=== PATIENT | male | born 1940 | race Caucasian/White ===

== ENCOUNTER 2019-06-06 19:01 | Inpatient (IN) | payer MEDICARE ==
[2019-06-06 19:28] LABS: Glucose,Whole Blood 112 mg/dL (75-99)
[2019-06-06] MEDS ORDERED: ASPIRIN 81 MG PO STA (19:29)
[2019-06-06] MEDS ORDERED: SODIUM CHLORIDE 0.9% 500 ML 500 ML IV STA (19:29)
--- NOTE | 2019-06-06 19:31 | ED ---
General Adult HPI - General Chief complaint: Neuro Symptoms/Deficit Stated complaint: Rt arm numbness/confused Time Seen by Provider: 06/06/19 19:11 Source: patient Mode of arrival: wheelchair Limitations: no limitations - History of Present Illness Initial comments: Dictation was produced using [employer] dictation software. please excuse any grammatical, word or spelling errors. Chief Complaint: 78-year-old male presenting with strokelike symptoms. History of Present Illness: 78-year-old male is past medical history dysl ipidemia and hypertension. He had an episode today lasting for approximately 10 minutes. He was disoriented with difficulty with speech and having numbness to his right upper extremity. Patient has a history of CVA. He states his symptoms lasted symptoms resolved. He was concerned he is having a stroke into the emergency department. Patient denies any symptoms at this time. He did complain of some mild nasal congestion earlier this morning. The ROS documented in this emergency department record has been reviewed and confirmed by me. Those systems with pertinent positive or negative responses have been documented in the HPI. All other systems are other negative and/or noncontributory. PHYSICAL EXAM: General Impression: Alert and oriented x3, not in acute distress HEENT: Normocephalic atraumatic, extra-ocular movements intact, pupils equal and reactive to light bilaterally, mucous membranes moist. Cardiovascular: Heart regular rate and rhythm, S1&S2 audible, no murmurs, rubs or gallops Chest: Lungs clear to auscultation bilaterally, no rhonchi, no wheeze, no rales Abdomen: Bowel sounds present, abdomen soft, non-tender, non-distended, no organomegaly Musculoskeletal: Pulses present and equal in all extremities, no peripheral edema Motor: no focal deficits noted Neurological: CN II-XII grossly intact, no focal motor or sensory deficits noted Skin: Intact with no visualized rashes Psych: Normal affect and mood ED course: [id number] male with clinical presentation consistent with transient ischemic attack. Patient evaluated bedside with NIH of 0. Signs upon arrival are within acceptable limits. Patient given aspirin.Laboratory evaluation found to be unremarkable. Chest x-ray is nonacute. Computed tomography scan of the brain shows no acute findings. No intracranial bleed. Patient given aspirin. Patient reevaluated bedside so continues to endorse no neurologic symptoms. Clinical presentation concerning for transient ischemic attack. Patient be admitted for TIA workup. Apple understandable agreeable with disposition. EKG interpretation: Ventricular rate 73, sinus rhythm,. Interval 184, Q 74, QTC 418. No UT prolongation, no QTC prolongation, no ST or T-wave changes noted. No old EKG for comparison. Overall, this EKG is unremarkable - Related Data Home Medications Medication Instructions Recorded Confirmed Atorvastatin [Lipitor] 40 mg PO DAILY 06/06/19 06/06/19 Lisinopril-Hctz 20-25 mg 1 tab PO HS 06/06/19 06/06/19 [Zestoretic 20-25] Ubidecarenone [Co Q-10] 100 mg PO DAILY 06/06/19 06/06/19 Allergies Allergy/AdvReac Type Severity Reaction Status Date / Time No Known Allergies Allergy Verified 06/06/19 19:55 Review of Systems ROS Statement: Those systems with pertinent positive or pertinent negative responses have been documented in the HPI. ROS Other: All systems not noted in ROS Statement are negative. Past Medical History Past Medical History: Hyperlipidemia, Hypertension History of Any Multi-Drug Resistant Organisms: None Reported Past Surgical History: No Surgical Hx Reported Past Psychological History: No Psychological Hx Reported Smoking Status: Former smoker Past Alcohol Use History: None Reported Past Drug Use History: None Reported General Exam Limitations: no limitations Course Vital Signs 06/06/19 06/06/19 19:02 20:20 Temperature 98.2 F Pulse Rate 72 65 Respiratory 18 18 Rate Blood Pressure 188/94 173/98 O2 Sat by Pulse 96 94 L Oximetry Medical Decision Making - Lab Data Result diagrams: 06/06/19 19:21 06/06/19 19:21 Lab Results 06/06/19 06/06/19 06/06/19 Range/Units 19:21 19:21 19:21 WBC 7.9 (3.8-10.6) k/uL RBC 5.27 (4.30-5.90) m/uL Hgb 14.8 (13.0-17.5) gm/dL Hct 45.3 (39.0-53.0) % MCV 86.0 (80.0-100.0) fL MCH 28.1 (25.0-35.0) pg MCHC 32.7 (31.0-37.0) g/dL RDW 15.1 (11.5-15.5) % Plt Count 200 (150-450) k/uL Neutrophils % 72 % Lymphocytes % 17 % Monocytes % 6 % Eosinophils % 4 % Basophils % 1 % Neutrophils # 5.6 (1.3-7.7) k/uL Lymphocytes # 1.3 (1.0-4.8) k/uL Monocytes # 0.5 (0-1.0) k/uL Eosinophils # 0.3 (0-0.7) k/uL Basophils # 0.1 (0-0.2) k/uL PT 10.3 (9.0-12.0) sec INR 1.0 (<1.2) APTT 24.3 (22.0-30.0) sec Sodium 141 (137-145) mmol/L Potassium 4.5 (3.5-5.1) mmol/L Chloride 102 (98-107) mmol/L Carbon Dioxide 29 (22-30) mmol/L Anion Gap 10 mmol/L BUN 17 (9-20) mg/dL Creatinine 1.06 (0.66-1.25) mg/dL Est GFR (CKD-EPI)AfAm 78 (>60 ml/min/1.73 sqM) Est GFR (CKD-EPI)NonAf 68 (>60 ml/min/1.73 sqM) Glucose 117 H (74-99) mg/dL POC Glucose (mg/dL) (75-99) mg/dL POC Glu Biological Technician ID Calcium 9.4 (8.4-10.2) mg/dL Total Bilirubin 0.7 (0.2-1.3) mg/dL AST 31 (17-59) U/L ALT 22 (21-72) U/L Alkaline Phosphatase 77 (38-126) U/L Troponin I (0.000-0.034) ng/mL Total Protein 7.0 (6.3-8.2) g/dL Albumin 4.1 (3.5-5.0) g/dL 06/06/19 06/06/19 Range/Units 19:21 19:27 WBC (3.8-10.6) k/uL RBC (4.30-5.90) m/uL Hgb (13.0-17.5) gm/dL Hct (39.0-53.0) % MCV (80.0-100.0) fL MCH (25.0-35.0) pg MCHC (31.0-37.0) g/dL RDW (11.5-15.5) % Plt Count (150-450) k/uL Neutrophils % % Lymphocytes % % Monocytes % % Eosinophils % % Basophils % % Neutrophils # (1.3-7.7) k/uL Lymphocytes # (1.0-4.8) k/uL Monocytes # (0-1.0) k/uL Eosinophils # (0-0.7) k/uL Basophils # (0-0.2) k/uL PT (9.0-12.0) sec INR (<1.2) APTT (22.0-30.0) sec Sodium (137-145) mmol/L Potassium (3.5-5.1) mmol/L Chloride (98-107) mmol/L Carbon Dioxide (22-30) mmol/L Anion Gap mmol/L BUN (9-20) mg/dL Creatinine (0.66-1.25) mg/dL Est GFR (CKD-EPI)AfAm (>60 ml/min/1.73 sqM) Est GFR (CKD-EPI)NonAf (>60 ml/min/1.73 sqM) Glucose (74-99) mg/dL POC Glucose (mg/dL) 112 H (75-99) mg/dL POC Glu Biological Technician Susan Mckoy Calcium (8.4-10.2) mg/dL Total Bilirubin (0.2-1.3) mg/dL AST (17-59) U/L ALT (21-72) U/L Alkaline Phosphatase (38-126) U/L Troponin I <0.012 (0.000-0.034) ng/mL Total Protein (6.3-8.2) g/dL Albumin (3.5-5.0) g/dL Disposition Clinical Impression: TIA (transient ischemic attack) Disposition: ADMITTED IP TO THIS HOSP Condition: Fair Referrals: Vincenzo De La Fuente MD [Primary Care Provider] - 1-2 days Decision Time: 21:33
[2019-06-06 19:51] LABS: Basophils # (A) 0.1 k/uL (0-0.2); Basophils % (A) 1 %; Eosinophils # (A) 0.3 k/uL (0-0.7); Eosinophils % (A) 4 %; HCT 45.3 % (39.0-53.0); HGB 14.8 gm/dL (13.0-17.5); Lymphocytes # (A) 1.3 k/uL (1.0-4.8); Lymphocytes % (A) 17 %; MCH 28.1 pg (25.0-35.0); MCHC 32.7 g/dL (31.0-37.0); Mean Platelet Volume 7.5; Monocytes # (A) 0.5 k/uL (0-1.0); Monocytes % (A) 6 %; Neutrophils # (A) 5.6 k/uL (1.3-7.7); Neutrophils % (A) 72 %; Platelet Count 200 k/uL (150-450); RBC 5.27 m/uL (4.30-5.90); RDW 15.1 % (11.5-15.5); WBC 7.9 k/uL (3.8-10.6)
--- NOTE | 2019-06-06 19:52 | CT ---
EXAMINATION TYPE: CT brain wo con DATE OF EXAM: 06/06/2019 COMPARISON: None HISTORY: Right sided arm numbness and confusion CT DLP: 1087.4 mGycm Automated exposure control for dose reduction was used. FINDINGS: There is some cerebral cortical atrophy. There is no mass effect nor midline shift. There is no sign of intracranial hemorrhage. The calvarium is intact. IMPRESSION: MILD CEREBRAL ATROPHY. NO ACUTE INTRACRANIAL ABNORMALITY.
--- NOTE | 2019-06-06 19:53 | XR ---
EXAMINATION TYPE: XR chest 2V DATE OF EXAM: 06/06/2019 COMPARISON: NONE HISTORY: Confusion TECHNIQUE: Frontal and lateral views of the chest are obtained. FINDINGS: Heart and mediastinum are normal. Lungs are clear. Diaphragm is normal. There are chest le ads. Bony thorax is intact. IMPRESSION: No active cardiopulmonary disease. Normal heart.
[2019-06-06 19:56] LABS: Partial Thromboplastin Time 24.3 sec (22.0-30.0); Prothrombin Time 10.3 sec (9.0-12.0)
[2019-06-06 20:09] LABS: Albumin 4.1 g/dL (3.5-5.0); Calcium 9.4 mg/dL (8.4-10.2); Potassium 4.5 mmol/L (3.5-5.1); Total Bilirubin 0.7 mg/dL (0.2-1.3)
[2019-06-06] MEDS: SODIUM CHLORIDE 0.9% 1,000 ML IV SCH (23:24)
--- NOTE | 2019-06-06 23:42 | P.HPIM ---
History of Present Illness H&P Date: 06/06/19 Patient is a 78-year-old male with a PMH of hypertension and hyperlipidemia who presented to the ED with complaints of sudden onset of right hand numbness and right arm weakness and incoordination. The patient states that he was in his usual state of health and was having dinner at a restaurant when he suddenly noticed his right hand became numb. He then attempted to reach for a few objects and felt that his coordination was off. The patient's family was present at the time and noticed his symptoms immediately brought him to the emergency room. The patient's symptoms resolved completely within 5 minutes of onset. The patient also endorsed feeling somewhat warm during the episode. The patient however denied experiencing any speech impairment, weakness/numbness elsewhere, visual disturbances, dizziness, chest pain, shortness of breath, nausea, vomiting, diaphoresis. He also denied diarrhea, urinary complaints, abdominal pain, or headaches. Patient states that he has never had a stroke or stroke-like symptoms in the past. At time of interview, he felt that he was entirely back to his baseline. He underwent an extensive evaluation in the emergency room with CT head showing mild cerebral atrophy, chest x-ray unremarkable, and EKG showing sinus rhythm at 73 bpm with APCs along with T-wave inversion in leads III and V1. Laboratory evaluation revealed a WBC count of 7.9, hemoglobin 14.8, platelets 200, sodium 141, potassium 4.5, BUN 17, creatinine 1.06, glucose 117, troponin less than 0.012. The patient is being admitted for further management of a transient ischemic attack. Review of Systems Pertinent positives and negatives as discussed in HPI, a complete review of systems was performed and all other systems are negative. Past Medical History Past Medical History: Hyperlipidemia, Hypertension History of Any Multi-Drug Resistant Organisms: None Reported Past Surgical History: No Surgical Hx Reported Past Psychological History: No Psychological Hx Reported Smoking Status: Former smoker Past Alcohol Use History: None Reported Past Drug Use History: None Reported Medications and Allergies Home Medications Medication Instructions Recorded Confirmed Type Atorvastatin [Lipitor] 40 mg PO DAILY 06/06/19 06/06/19 History Lisinopril-Hctz 20-25 mg 1 tab PO HS 06/06/19 06/06/19 History [Zestoretic 20-25] Ubidecarenone [Co Q-10] 100 mg PO DAILY 06/06/19 06/06/19 History Allergies Allergy/AdvReac Type Severity Reaction Status Date / Time No Known Allergies Allergy Verified 06/06/19 19:55 Physical Exam Vitals: Vital Signs Temp Pulse Resp BP Pulse Ox 06/06/19 22:15 73 18 160/94 95 06/06/19 21:20 73 18 173/93 93 L 06/06/19 20:20 65 18 173/98 94 L 06/06/19 19:02 98.2 F 72 18 188/94 96 Intake and Output 06/06/19 06/06/19 06/07/19 14:59 22:59 06:59 Other: Weight 89.811 kg General: non toxic, no distress, appears at stated age, obese Derm: no unusual rashes/lesions no unusual ecchymoses, warm, dry Head: atraumatic, normocephalic, symmetric Eyes: EOMI, no lid lag, anicteric sclera, pupils equal round reactive to light ENT: Nose and ears atraumatic, no thrush, no pharyngeal erythema Neck: No thyromegaly, no cervical lymphadenopathy, trachea midline, supple Mouth: no lip lesion, mucus membranes moist Cardiovascular: S1S2 reg, no murmur, positive posterior tibial pulse bilateral, no edema, capillary refill less than 2 seconds Lungs: CTA bilateral, no rhonchi, no rales , no accessory muscle use Abdominal: soft, nontender to palpation, no guarding, no appreciable organomegaly, normal bowel sounds Ext: no gross muscle atrophy, muscle strength 5 out of 5 in all 4 extremities, no contractures, Neuro: CN II-XI grossly intact, light touch intact all 4 extremities, finger to nose within normal limits, Babinski downwards bilaterally Psych: Alert, oriented, appropriate affect Results CBC & Chem 7: 06/06/19 19:21 06/06/19 19:21 Labs: Abnormal Lab Results - Last 24 Hours (Table) 06/06/19 06/06/19 Range/Units 19:21 19:27 Glucose 117 H (74-99) mg/dL POC Glucose (mg/dL) 112 H (75-99) mg/dL Assessment and Plan Plan: Transient ischemic attack -Neurology consulted -Carotid duplex, cardiac monitoring, echocardiogram -Continue with aspirin 325 mg daily and Lipitor -Speech and swallow evaluation -PT/OT consult -Neurochecks -Fall, seizure, aspiration precautions -Lipid panel, A1C Hypertension, hyperlipidemia -Continue with home meds DVT prophylaxis -Heparin The patient is admitted with an anticipated less than 2 midnight stay for evaluation of TIA CODE STATUS: Full Code Discussed with: Patient, Family Anticipated discharge date: 06/08/[address]: Home A total of 40 minutes was spent on the care of this complex patient more than 50% of the time was spent in counseling and care coordination.
--- NOTE | 2019-06-07 00:49 | US ---
EXAM: US Duplex Bilateral Extracranial Arteries CLINICAL HISTORY: ITS.REASON US Reason: TIA TECHNIQUE: Real-time duplex ultrasound scan of the extracranial arteries integrating B-mode two-dimensional vascular structure, Doppler spectral analysis and color flow Doppler imaging. COMPARISON: None. FINDINGS: Right common carotid artery: Unremarkable. No occlusion or significant stenosis on color flow and spectral Doppler imaging. Right internal carotid artery: Atherosclerosis of the right carotid bifurcation without hemodynamically significant stenosis. Right external carotid artery: Unremarkable. No occlusion or significant stenosis on color flow and spectral Doppler imaging. Right vertebral artery: Unremarkable. Antegrade flow. Right ICA/CCA ratio: Unremarkable. Within normal limits. Left common carotid artery: Unremarkable. No occlusion or significant stenosis on color flow and spectral Doppler imaging. Left internal carotid artery: Atherosclerosis of the left carotid bifurcation without hemodynamically significant stenosis. Left external carotid artery: Unremarkable. No occlusion or significant stenosis on color flow and spectral Doppler imaging. Left vertebral artery: Unremarkable. Antegrade flow. Left ICA/CCA ratio: Unremarkable. Within normal limits. Lymph nodes: Unremarkable. No lymphadenopathy. CAROTID STENOSIS REFERENCE USING SRU CRITERIA: Mild - <50% stenosis. ICA PSV is less than 125 cm/second and plaque or intimal thickening is visible. Moderate - 50-69% stenosis. ICA PSV is 125 to 230 cm/second and plaque is visible. Severe - 70-94% stenosis. ICA PSV is more than 230 cm/second and visible plaque with lumen narrowing is seen. Near occlusion - 95-99% stenosis. ICA PSV is variable and significant plaque with luminal narrowing is seen. Occluded - 100% stenosis. No flow identified. IMPRESSION: No hemodynamically significant stenosis of the carotid arteries.
[2019-06-07] MEDS: HEPARIN SODIUM,PORCINE 5,000 UNIT/ML 1 ML VIAL SQ SCH ×2 (02:21→09:40)
[2019-06-07 06:26] LABS: Cholesterol 152 mg/dL (<200); HDL Cholesterol 36 mg/dL (40-60); LDL Cholesterol,Calculated 86 mg/dL (0-99); Triglycerides 150 mg/dL (<150)
[2019-06-07] MEDS ORDERED: ATORVASTATIN 40 MG TAB PO SCH (09:00)
[2019-06-07] MEDS: ATORVASTATIN 40 MG TAB PO SCH (09:39)
--- NOTE | 2019-06-07 10:20 | ECHOF ---
Referral Reason:TIA MEASUREMENTS -------- HEIGHT: 167.6 cm WEIGHT: 89.8 kg BP: 140/81 RVIDd: 2.9 cm (< 3.3) IVSd: 1.2 cm (0.6 - 1.1) LVIDd: 4.9 cm (3.9 - 5.3) LVPWd: 1.3 cm (0.6 - 1.1) IVSs: 2.0 cm LVIDs: 3.2 cm LVPWs: 1.5 cm LAESV Index (A-L): 44.97 ml/m Ao Diam: 4.0 cm (2.0 - 3.7) AV Cusp: 2.3 cm (1.5 - 2.6) LA Diam: 4.1 cm (2.7 - 3.8) MV EXCURSION: 13.883 mm (> 18.000) MV EF SLOPE: 124 mm/s (70 - 150) EPSS: 0.5 cm MV E Yunior: 1.24 m/s MV DecT: 119 ms MV A Yunior: 0.34 m/s MV E/A Ratio: 3.64 AR PHT: 244 ms RAP: 5.00 mmHg RVSP: 35.78 mmHg FINDINGS -------- Sinus rhythm with extra systolic beats. This was a technically difficult study with suboptimal apical views. The left ventricular size is normal. There is mild concentric left ventricular hypertrophy. Overa ll left ventricular systolic function is low-normal with, an EF between 50 - 55 %. The diastolic fi lling pattern is normal for the age of the patient 9.57. Apical anterior LV wall motion is hypokine tic. The right ventricle is normal in size. LA is severely dilated >40 ml/m2 The right atrial size is normal. Lumason used Interatrial and interventricular septum intact. The aortic valve is trileaflet and appears structurally normal. There is mild aortic regurgitation. There is no evidence of aortic stenosis. Mild mitral annular calcification present. Vrko-rr-[id number] mitral regurgitation is present. Mild tricuspid regurgitation present. There is mild pulmonary hypertension. The right ventricular systolic pressure, as measured by Doppler, is 35.78mmHg. Trace/mild (physiologic) pulmonic regurgitation. 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 IVC Not well visulized. There is no pericardial effusion. CONCLUSIONS -------- 1. Sinus rhythm with extra systolic beats. 2. This was a technically difficult study with suboptimal apical views. 3. The left ventricular size is normal. 4. There is mild concentric left ventricular hypertrophy. 5. Overall left ventricular systolic function is low-normal with, an EF between 50 - 55 %. 6. Apical anterior LV wall motion is hypokinetic. 7. The right ventricle is normal in size. 8. LA is severely dilated >40 ml/m2 9. The right atrial size is normal. 10. Lumason used 11. Interatrial and interventricular septum intact. 12. The aortic valve is trileaflet and appears structurally normal. 13. There is mild aortic regurgitation. 14. There is no evidence of aortic stenosis. 15. Mild mitral annular calcification present. 16. Assb-an-lziczyce mitral regurgitation is present. 17. Mild tricuspid regurgitation present. 18. There is mild pulmonary hypertension. 19. The right ventricular systolic pressure, as measured by Doppler, is 35.78mmHg. 20. Trace/mild (physiologic) pulmonic regurgitation. 21. 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 22. IVC Not well visulized. 23. There is no pericardial effusion. BUSINESS [employer]UTIONS ARCHITECT: Lina Raya RDCS
[2019-06-07 13:21] LABS: Magnesium 1.7 mg/dL (1.6-2.3)
[2019-06-07 14:23] LABS: Hemoglobin A1C 5.8 % (4.0-6.0)
--- NOTE | 2019-06-07 14:42 | P.CNNES ---
History of Present Illness Consult date: 06/07/19 Reason for Consult: TIA Chief complaint: Disorientation with difficulty in speech and having numbness to right arm History of Present Illness: REFERRING PHYSICIAN: Dr. Avinash Blanchard HISTORY OF PRESENT ILLNESS: Thank you for allowing me to evaluate Mr. Marv Pearson. Mr. Pearson is a 78-year-old man with past medical history of hypertension, hyperlipidemia, presented to [facility] for brief episode of R hand and forearm numbness and depth perception issue, consulting neurology for concern for TIA. Patient is with his girlfriend at bedside. He states that last night she was having dinner and he was reaching for his coffee cup when he noticed that his right hand and the first half of the forearm felt numb and he couldn't grab onto the cup handle not due to weakness but due to depth perception. The girlfriend states that he appeared confused, by altered. The confusion mainly appeared as he kept saying "I cannot grab the cup." Patient denies any recent fevers, headache, nausea, vomiting, double/vision changes, weakness. Patient felt a little dizzy after this event. This episode lasted for maybe an hour, the hospital, symptoms had resolved. PAST MEDICAL HISTORY: Hypertension, hyperlipidemia PAST SURGICAL HISTORY: None HOME MEDICATIONS: Lisinopril-hydrochlorothiazide, atorvastatin, Q10 ALLERGIES: No known ALLERGIES SOCIAL HISTORY: Former smoker for 20 years, 1.5pack per 2 days FAMILY HISTORY: Mother had [place] REVIEW OF SYSTEMS: The 14 systems are reviewed and no additional points are identified compared to the review of systems documented history and physical PHYSICAL EXAMINATION: VITAL SIGNS: Temperature 98.2 pulse rate 84 respiratory rate 16 blood pressure 158/89 O2 saturation 96% on room air GEN.: NAD, pleasant and cooperative HEENT: NCAT, sclera without icterus NECK: Supple, no carotid bruit SKIN AND EXTREMITIES: Warm to touch, no edema NEURO: MENTAL STATUS: Patient alert and oriented to self, place, time. Able to name the current president. Speech fluent, able to name and repeat, following all commands readily. No right and left disorientation, extinction to double simultaneous stimulation, finger agnosia, neglect. CRANIAL NERVES II THROUGH XII: II: Pupils are equal and reactive to light symmetrically. No afferent pupillary defect. Visual abreu are intact. III, IV, : No ptosis. Extraocular movements full. No nystagmus. V: Facial sensation intact from V1-3. VII. No clear facial asymmetry. VIII: Hearing intact to finger rub bilaterally. IX, X: Symmetric palate elevation. XI: Shoulder shrug intact. XII: Tongue midline without fasciculation or atrophy. MOTOR: Normal bulk/tone. No pronator drift or tremor. Strength is 5/5 throughout all 4 extremities. SENSORY: Intact to light touch, temperature, pinprick in all 4 extremities. Romberg is negative. REFLEXES: 2+ throughout. Toes are downgoing. No clonus. Bryant's is absent COORDINATION: Finger to nose and heel to trujillo intact. No dysmetria. Rapid alternating movements with good speed and accuracy. GAIT: Narrow-based and stable. Able to toe/heel/tandem walk DIAGNOSTIC TESTING: LABORATORY: WBC 7.9 hemoglobin 0.8 platelets 200 PT 10.3 INR 1.0 Sodium 141 potassium 4.5 chloride 102 bicarb 29 BUN 17 creatinine 1.06 glucose 117. T 31 ALT 22 alk phos 77 troponin <0.012 total cholesterol 152 HDL 36 LDL 86 triglycerides 150 TSH 6.840 A1C 5.8 IMAGING: CT head without contrast 06/06/2019: Mild atrophy. No acute intracranial abnormality. Carotid Dopplers bilateral 06/07/2019: No hemodynamically significant stenosis of the carotid arteries. Transthoracic echocardiogram 2019: LV/RV/RA sizes are normal. Left atrium is severely dilated. Ejection fraction 50-55%. Intra-atrial and intraventricular septum intact. EKG: Sinus rhythm with premature atrial complexes. Cardiac telemetry: Atrial fibrillation ASSESSMENT: Mr. Pearson is a 78-year-old man with past medical history of hypertension, hyperlipidemia, presented to [facility] for brief episode of R hand and forearm numbness and depth perception issue, consulting neurology for concern for TIA. However, at time, patient is in atrial fibrillation seen on cardiac monitoring. Patient likely had a TIA, but patient CHADsVASC score is 3, for which patient should be started on anticoagulation for stroke prevention. Pa perrynt also with elevated TSH. Free T4 is pending at this time RECOMMENDATIONS: 1. MRI brain without contrast. From her perspective, patient can be discharged after MRI brain today. 2. Eliquis, Atorvastatin 40mg qhs 3. Most likely diagnosis of hypothyroidism, management per primary team. 4. Patient will need to follow up with neurologist, talent rep and his primary care doctor as outpatient. 5. Discussed with patient about stroke prevention guidelines. Medication compliance, hypertension/diabetes control, lifestyle changes including no smoking, drinking in moderation, losing weight, exercising, eating healthier Past Medical History Past Medical History: Hyperlipidemia, Hypertension History of Any Multi-Drug Resistant Organisms: None Reported Past Surgical History: No Surgical Hx Reported Past Psychological History: No Psychological Hx Reported Smoking Status: Former smoker Past Alcohol Use History: None Reported Past Drug Use History: None Reported Medications and Allergies Home Medications Medication Instructions Recorded Confirmed Type Atorvastatin [Lipitor] 40 mg PO DAILY 06/06/19 06/06/19 History Lisinopril-Hctz 20-25 mg 1 tab PO HS 06/06/19 06/06/19 History [Zestoretic 20-25] Ubidecarenone [Co Q-10] 100 mg PO DAILY 06/06/19 06/06/19 History Allergies Allergy/AdvReac Type Severity Reaction Status Date / Time No Known Allergies Allergy Verified 06/06/19 19:55 Physical Examination - Vital Signs Vital Signs: Vital Signs Temp Pulse Pulse Resp BP BP Pulse Ox 06/07/19 08:00 98.2 F 84 16 158/89 96 06/07/19 04:00 98 F 58 L 16 132/65 95 06/07/19 02:06 98 F 60 16 140/81 94 L 06/06/19 23:20 63 18 171/97 93 L 06/06/19 22:15 73 18 160/94 95 06/06/19 21:20 73 18 173/93 93 L 06/06/19 20:20 65 18 173/98 94 L 06/06/19 19:02 98.2 F 72 18 188/94 96 Intake and Output 06/06/19 06/07/19 06/07/19 22:59 06:59 14:59 Intake Total 200 Output Total 1000 Balance 200 -1000 Intake: Intake, IV Titration 120 Amount Sodium Chloride 0.9% 1, 120 000 ml @ 20 mls/hr IV . Q24H [facility] Rx#:[id number] Oral 80 Output: Urine 1000 Other: Voiding Method Toilet Toilet # Voids 2 Weight 89.811 kg Results - Laboratory Findings CBC and BMP: 06/06/19 19:21 06/06/19 19:21 Abnormal Lab Findings: Abnormal Labs 06/06/19 06/06/19 06/06/19 19:21 19:21 19:27 Glucose 117 H POC Glucose (mg/dL) 112 H Triglycerides 150 H HDL Cholesterol 36 L
[2019-06-07 14:59] LABS: T4, Free (Free Thyroxine) 1.24 ng/dL (0.78-2.19)
[2019-06-07] MEDS: RIVAROXABAN 20 MG TAB PO SCH (16:35)
--- NOTE | 2019-06-07 16:40 | P.PN ---
Subjective Progress Note Date: 06/07/19 (delayed charting seen at 11am and then again at approx 1430) Principal diagnosis: Right hand numbness Patient is an 78-year-old male past medical history of hypertension and dyslipidemia who presented to the emergency department with complaints of sudden onset right hand numbness and right arm weakness associated with incoordination. This lasted approximately 5 minutes. In the ER he underwent extensive evaluation. On arrival he was found to be hypertensive with a blood pressure 188/94. Initial laboratory analysis was unremarkable. He underwent a CT head which showed mild cerebral atrophy but no acute intracranial abnormality. Carotid Dopplers showed no significant stenosis. She was given aspirin and maintained on a statin. He was placed in observation. While on telemetry he developed atrial fibrillation which was rate controlled. He underwent an echocardiogram which showed no evidence of intracardiac thrombus, ejection fraction 50-55%, but some apical anterior LV wall motion that was hypokinetic. He was started on Xarelto. Neurology was consulted and MRI was ordered. Cardiology consulted as well. Patient seen and examined at bedside. He states that all of his right arm symptoms have resolved. He is feeling back to baseline. Denies any chest pain, palpitations, lightheadedness, dizziness, or shortness of breath. No history of atrial fibrillation. Atrial fibrillation explained in depth to the patient, the Other, and son. Given resources including heart.ordered for more information on atrial fibrillation. We discussed the risks and benefits of anticoagulation. He is in agreement with a trial of anticoagulation. Objective - Vital Signs Vital signs: Vital Signs Temp 97.7 F 06/07/19 12:00 Pulse 95 06/07/19 12:00 Resp 16 06/07/19 12:00 BP 159/92 06/07/19 12:00 Pulse Ox 95 06/07/19 12:00 Intake & Output 06/06/19 06/07/19 06/07/19 18:59 06:59 18:59 Intake Total 200 220 Output Total 2100 Balance 200 -1880 Weight 89.8 kg Intake: IV 20 Invasive Line 1 20 Intake, IV Titration 120 Amount Sodium Chloride 0.9% 1, 120 000 ml @ 20 mls/hr IV . Q24H [facility] Rx#:[id number] Oral 80 200 Output: Urine 2100 Other: Voiding Method Toilet Toilet # Voids 2 - Exam General: non toxic, no distress, appears at stated age Derm: warm, dry Head: atraumatic, normocephalic, symmetric Eyes: EOMI, no lid lag, anicteric sclera Mouth: no lip lesion, mucus membranes moist Cardiovascular: S1S2 irreg, no murmur, positive posterior tibial pulse bilateral, Lungs: CTA bilateral, no rhonchi, no rales , no accessory muscle use Abdominal: soft, nontender to palpation, no guarding, no appreciable organomegaly Ext: no gross muscle atrophy, no edema, no contractures Neuro: CN II-XI grossly intact, no focal neuro deficits Psych: Alert, oriented, appropriate affect - Labs CBC & Chem 7: 06/06/19 19:21 06/06/19 19:21 Labs: Abnormal Lab Results - Last 24 Hours (Table) 06/06/19 06/06/19 06/06/19 Range/Units 19:21 19:21 19:21 Glucose 117 H (74-99) mg/dL POC Glucose (mg/dL) (75-99) mg/dL Triglycerides 150 H (<150) mg/dL HDL Cholesterol 36 L (40-60) mg/dL TSH 6.840 H (0.465-4.680) mIU/L 06/06/19 Range/Units 19:27 Glucose (74-99) mg/dL POC Glucose (mg/dL) 112 H (75-99) mg/dL Triglycerides (<150) mg/dL HDL Cholesterol (40-60) mg/dL TSH (0.465-4.680) mIU/L Assessment and Plan Assessment: Transient ischemic attack with newly discovered atrial fibrillation -Await MRI -Neurology recommendations appreciated -We will increase Lipitor dose to 80 mg on discharge -Aspirin -Cholesterol profile within normal limits -Carotid Dopplers negative -Telemetry, cardiology consult, Xarelto for blood thinner -Discussed with patient that he likely will need an ischemic evaluation but this may be done as an outpatient due to recent TIA - PT/OT evaluation HTN, urgency on arrival - May have been due to TIA - BP improving no aggressive lowering for 24 hours. IF still elevated in AM then increase lisinopril to 40 and consider adding Beta yonahtan HLD - Statin DVT prophylaxis: Xarelto Discussed with: Patient, nursing Anticipated discharge: <[address]: home A total of 65 minutes was spent on the care of this complex patient more than 50% of the time was spent in counseling and care coordination.
[2019-06-07] MEDS: ASPIRIN 325 MG TAB PO SCH (20:29)
[2019-06-07] MEDS ORDERED: LISINOPRIL-HCTZ 20-25 MG 1 EACH TAB PO SCH (21:00)
[2019-06-07] MEDS: SODIUM CHLORIDE 0.9% 1,000 ML IV SCH (23:56)
--- NOTE | 2019-06-08 02:13 | CONS ---
CONSULTATION Mr. Pearson is a 78-year-old gentleman who is seen for cardiac evaluation the patient's medical records reviewed. Mr. Pearson is a 78-year-old gentleman who came to the emergency room who has a history of hypertension and dyslipidemia. The patient came with a complaint of numbness in the right hand and some weakness in the right hand. He was unable to hold a coffee cup. This only lasted for few minutes. The patient came to the emergency room initially patient was found to be hypertensive, underwent a CT of the head, which showed mild cerebral atrophy without any significant abnormality. Carotid duplex study did not show any evidence of significant stenosis. While he was waiting in the emergency room today patient developed atrial fibrillation with a controlled rate. The patient denies any past history of atrial fibrillation. Denies prior history of myocardial infarction. Denies any history suggestive of angina. PAST MEDICAL HISTORY: Includes history of hypertension, hyperlipidemia. No history of any major surgeries. Patient is a former smoker. THE PATIENT'S: Home medications include Lipitor 40 mg daily. Zestoretic once a day. Co Q enzyme once a day. PHYSICAL EXAMINATION: At present reveals a 78-year-old gentleman who does not appear to be in any acute distress. The patient's blood pressure is 159/92 mmHg, heart rate is 90 per minute. The respiratory rate is 16. Head/ENT examination is negative. Neck is supple. There is no increase in jugular venous pressure. Both the carotid pulses are felt. There is no bruit. Chest is symmetrical. HEART: The PMI is not felt. First and second heart sounds are normal. There is no evidence of any murmur. Lungs are clinically clear to auscultation and percussion. Abdomen is negative. Extremities: Peripheral pulsations are 2+. EKG shows normal sinus rhythm with PACs monitor pattern now shows atrial fibrillation with a controlled rate. The patient's troponin is normal. Cholesterol is 152. Free T4 is 1.24. FINAL IMPRESSION: This patient is admitted with some right arm transient weakness and numbness. A transient ischemic attack cannot be entirely excluded. The patient has been found to be have paroxysmal atrial fibrillation. Patient initially was in normal sinus rhythm. I reviewed the echocardiogram myself. Overall left ventricular systolic function is normal. I do not see any significant wall motion abnormality to suggest any definite prior myocardial infarction. RECOMMENDATIONS: In view of the history suggestive for TIA and patient is 78 years old and hypertensive, the patient should be treated with anticoagulation. Patient is started on Xarelto 20 mg daily. The patient remains stable he can be discharged home and follow up with the event monitor as an outpatient. If the patient has a frequent episodes of paroxysmal atrial fibrillation, then we can consider treatment with flecainide. SOHA / MARISELA: [id number] /
[2019-06-08] MEDS: ATORVASTATIN 40 MG TAB PO SCH (09:15)
[2019-06-08] MEDS: ASPIRIN 325 MG TAB PO SCH (09:15)
[2019-06-08] MEDS ORDERED: PROPAFENONE 150 MG TAB PO STA (09:22)
--- NOTE | 2019-06-08 13:40 | PN ---
PROGRESS NOTE This patient was admitted with the symptoms suggestive for TIA. While in the emergency room patient developed atrial fibrillation with controlled rate. Patient still remains in the atrial fibrillation, but the patient's vital signs are stable. Heart rate is 76 per minute, blood pressure is 150/78 mmHg. First and second heart sounds are normal. Lungs are clear to auscultation and percussion. The patient can be discharged home on Xarelto 20 mg daily. I will re-evaluate the patient in 3-4 weeks. If the patient persists to be in atrial fibrillation, he may need elective cardioversion. MMODL / IJN: [id number] /
--- NOTE | 2019-06-08 13:54 | MR ---
EXAMINATION TYPE: MR brain wo con DATE OF EXAM: 06/08/2019 COMPARISON: CT brain 06/06/2019 HISTORY: RT arm numbness, confusion on admission CONTRAST: Performed utilizing 0 mL intravenous Gadavist gadolinium contrast. TECHNIQUE: Multiplanar, multiecho imaging on a 3.0 Sara magnet is performed through the brain. Stud y is performed within 24 hours of arrival to the hospital. The craniovertebral junction is normal. The pituitary is normal. Diffusion-weighted imaging is performed. There is increased signal within the cortex of the left par ietal-occipital region compatible with acute ischemic changes. Some focal ischemic changes also withi n the left posterior parietal region closer to the vertex. Some subtle mild uptake may be within the parietal cortex near the vertex as well. These findings can be compatible with acute ischemic changes . These areas are evident on the inversion recovery weighted sequences. Normal vascular flow voids are within the visualized intracranial cerebral vasculature . Ventricles and sulci are appropriate for the patient age. IMPRESSIONS: 1. Findings compatible with acute cortical infarcts left parietal-occipital region discussed above. C onsider venous infarct within the differential.
--- NOTE | 2019-06-08 16:45 | P.PN ---
Subjective Progress Note Date: 06/08/19 Principal diagnosis: Right hand numbness Patient is an 78-year-old male past medical history of hypertension and dyslipidemia who presented to the emergency department with complaints of sudden onset right hand numbness and right arm weakness associated with incoordination. This lasted approximately 5 minutes. In the ER he underwent extensive evaluation. On arrival he was found to be hypertensive with a blood pressure 188/94. Initial laboratory analysis was unremarkable. He underwent a CT head which showed mild cerebral atrophy but no acute intracranial abnor mality. Carotid Dopplers showed no significant stenosis. She was given aspirin and maintained on a statin. He was placed in observation. While on telemetry he developed atrial fibrillation which was rate controlled. He underwent an echocardiogram which showed no evidence of intracardiac thrombus, ejection fraction 50-55%, but some apical anterior LV wall motion that was hypokinetic. He was started on Xarelto. Neurology was consulted and MRI was ordered which showed left sided acute CVA in 3 different areas all suplied by Left MCA. Cardiology consulted as well agreed with xarelto Patient seen and examined at bedside. Still without any symptoms. No chest pain. No shortness of breath. No nausea. No vomiting. No additional weakness or numbness. Case was discussed with cardiology. They will reevaluate the patient in the morning to see if SAMIR is warranted. I discussed the plan of care with Dr. Sutton. We came to the agreement of continuing Xarelto this evening and then rep eating head CT in the morning, if patient in agreement as small area of infarct so low chance of hemorrhagic conversion but still in A Fib so high incidence of recurrent stroke. Case discussed with family and patient at bedside for a prolonged period of time. Patient has newly discovered old atrial fibrillation along with acute CVA. During this time we typically would hold starting anticoagulation for 7-14 days, however Literature has come out suggesting that early anticoagulation may prevent recurrent ischemic stroke and does not hold significant risks of intracranial bleeding. At this point in time due to newly discovered A. fib and no SAMIR available the benefits of starting early anticoagulation due to the small area of stroke appeared awake the risks. We discussed that the risks are hemorrhagic conversion of his ischemic stroke. We'll repeat a head CT in the morning to ensure there is no hemorrhagic conversion. Objective - Vital Signs Vital signs: Vital Signs Temp 97.6 F 06/08/19 08:00 Pulse 71 06/08/19 12:00 Resp 17 06/08/19 12:00 BP 136/89 06/08/19 12:00 Pulse Ox 96 06/08/19 12:00 Intake & Output 06/07/19 06/08/19 06/08/19 18:59 06:59 18:59 Intake Total 460 740 Output Total 2100 Balance -1640 740 Weight 86.8 kg Intake: IV 20 20 0.9 20 Invasive Line 1 20 Oral 440 720 Output: Urine 2100 Other: Voiding Method Toilet Toilet # Voids 3 - Exam General: non toxic, no distress, appears at stated age Derm: warm, dry Head: atraumatic, normocephalic, symmetric Eyes: EOMI, no lid lag, anicteric sclera Mouth: no lip lesion, mucus membranes moist Cardiovascular: S1S2 irreg, no murmur, positive posterior tibial pulse bilateral, Lungs: CTA bilateral, no rhonchi, no rales , no accessory muscle use Abdominal: soft, nontender to palpation, no guarding, no appreciable org anomegaly Ext: no gross muscle atrophy, no edema, no contractures Neuro: CN II-XI grossly intact, no focal neuro deficits Psych: Alert, oriented, appropriate affect - Labs CBC & Chem 7: 06/06/19 19:21 06/06/19 19:21 Assessment and Plan Assessment: Acute CVA Left sided with newly discovered atrial fibrillation -Neurology recommendations appreciated -We will increase Lipitor dose to 80 mg on discharge -Aspirin -Cholesterol profile within normal limits -Carotid Dopplers negative -Telemetry, cardiology recs, Xarelto for blood thinner -I discussed the plan of care with Dr. Sutton. Cardio will reevaluate the patient in the morning to see if SAMIR is warranted. We came to the agreement of continuing Xarelto this evening and then repeating head CT in the morning, if patient in agreement has area of infarct is relatively small and chances are hemorrhagic conversion are low, he is still in A. fib so chances of recurrent ischemic stroke on her high. Persistent benefits discussed the patient seen in agreement with plan of care. - Outpatient holter - PT/OT evaluation HTN, urgency on arrival - May have been due to TIA - Improved, continue to monitor BP HLD - Statin DVT prophylaxis: Xarelto Discussed with: Patient, nursing Anticipated discharge: 24-[address]: home A total of 45 minutes was spent on the care of this complex patient more than 50% of the time was spent in counseling and care coordination.
[2019-06-08] MEDS: RIVAROXABAN 20 MG TAB PO SCH (16:57)
[2019-06-08] MEDS: LISINOPRIL 20 MG TAB PO SCH (17:43)
[2019-06-08] MEDS: HYDROCHLOROTHIAZIDE 25 MG TAB PO SCH (17:43)
[2019-06-09] MEDS: SODIUM CHLORIDE 0.9% 1,000 ML IV SCH (00:56)
--- NOTE | 2019-06-09 08:03 | CT ---
EXAMINATION TYPE: CT brain wo con DATE OF EXAM: 06/09/2019 COMPARISON: 06/06/2019 HISTORY: Stroke; Hemorrhagic conversion CT DLP: 1099.4 mGycm Automated exposure control for dose reduction was used. FINDINGS: There is redemonstration of obscuration of the garcia-white junction in the left parieto-occipital whit e matter in the watershed distribution. There is no evidence of acute hemorrhage to indicate hemorrha gic transformation. No acute intracranial hemorrhage is seen within other compartments. Mild burden n onspecific white matter change is seen within the deep white matter. Very mild prominence of the anshul pheral sulci and ventricular system is compatible with age-related atrophy. Orbits are symmetric. Sub cutaneous tissues are unremarkable. Calvarium is intact. Paranasal sinuses and mastoid air cells are well aerated. IMPRESSION: SUBACUTE LEFT PARIETO-OCCIPITAL WATERSHED INFARCT WITHOUT EVIDENCE OF HEMORRHAGIC TRANSFORMATION.
[2019-06-09] MEDS: ATORVASTATIN 40 MG TAB PO SCH (09:06)
[2019-06-09] MEDS: LISINOPRIL 20 MG TAB PO SCH (09:06)
[2019-06-09] MEDS: HYDROCHLOROTHIAZIDE 25 MG TAB PO SCH (09:06)
[2019-06-09] MEDS: ASPIRIN 325 MG TAB PO SCH (09:06)
[2019-06-09 09:09] VITALS: BP 124/83; PULSE 77; RESP 18; TEMP 98
--- NOTE | 2019-06-09 11:40 | P.DS ---
Providers Date of admission: 06/08/19 15:29 Expected date of discharge: 06/09/19 Attending physician: Romina Arana MD Consults: 06/06/19 21:30 Consult Physician Routine Consulting Provider: Mariam Braden Consult Reason/Comments: tia Do you want consulting provider notified?: Yes 06/07/19 12:40 Consult Physician Routine Consulting Provider: Joaquín Gaines Consult Reason/Comments: Newly discovered A fib with TIA Do you want consulting provider notified?: Yes Primary care physician: Vincenzo De La Fuente Hospital Course: Discharge Diagnosis: Acute ischemic CVA left MCA distribution Atrial fibrillation, paroxysmal rate controlled Hypertensive urgency Dyslipidemia Hospital Course: Patient is an 78-year-old male past medical history of hypertension and dyslipidemia who presented to the emergency department with complaints of sudden onset right hand numbness and right arm weakness associated with incoordination. This lasted approximately 5 minutes. In the ER he underwent extensive evaluation. On arrival he was found to be hypertensive with a blood pressure 188/94. Initial laboratory analysis was unremarkable. He underwent a CT head which showed mild cerebral atrophy but no acute intracranial abnormality. Carotid Dopplers showed no significant stenosis. He was given aspirin and maintained on a statin. He was placed in observation. While on telemetry he developed atrial fibrillation which was rate controlled. He underwent an echocardiogram which showed no evidence of intracardiac thrombus, ejection fraction 50-55%, but some apical anterior LV wall motion that was hypokinetic. He was started on Xarelto. Neurology was consulted and MRI was ordered which showed left sided acute CVA in 3 different areas all suplied by Left MCA. Cardiology consulted as well agreed with xarelto. After much discussion was determined that early treatment with Xarelto to prevent recurrent ischemic stroke outweighed the risks of hemorrhagic conversion. He had a repeat head CT on the morning of 06/09 which not show any hemorrhagic conversion. He was determined stable for discharge home. He will follow with Dr. Main in the cardiology office for further Holter monitoring and possible cardioversion. He'll follow-up with Dr. De La Fuente in the office next week. He will need outpatient testing for HARDEEP as a cause of A fib. He was extensively counseled on the risk of recurrent stroke with atrial fibrillation, and need for medication compliance. We also discussed that he would need to repeat present the ER if he had any worsening stroke symptoms, rapid heartbeat, sudden onset shortness of breath, or chest pain. We talked about needing to monitor stool and urine for signs of bleeding as well as to look for coughing up blood or bloody nose. Patient seen and examined at bedside. Feeling well. No chest pain, shortness breath, nausea, vomiting, or residual right-sided deficit Vital signs reviewed and stable. General: non toxic, no distress, appears at stated age Derm: warm, dry Head: atraumatic, normocephalic, symmetric Eyes: EOMI, no lid lag, anicteric sclera Mouth: no lip lesion, mucus membranes moist Cardiovascular: S1S2 reg, no murmur, positive posterior tibial pulse bilateral, Lungs: CTA bilateral, no rhonchi, no rales , no accessory muscle use Abdominal: soft, nontender to palpation, no guarding, no appreciable organomegaly Ext: no gross muscle atrophy, no edema, no contractures Neuro: CN II-XI grossly intact, no focal neuro deficits Psych: Alert, oriented, appropriate affect A total of 45 minutes of time were spent preparing this complex discharge summary . Pertinent Studies: MRI brain-acute cortical infarcts in the parieto-occipital region. Results were discussed with radiologist felt this could be consistent with atrial fibrillation and not a venous infarct. Carotid Dopplers-no significant stenosis Echocardiogram-ejection fraction 55-60%, and area of anterior apical hypokinesis Repeat head CT 06/09-subacute left parieto-occipital watershed infarct without evidence evidence of hemorrhagic conversion Head CT 06/06-mild cerebral atrophy, no acute intracranial abnormality Patient Condition at Discharge: Fair Plan - Discharge Summary New Discharge Prescriptions: New Aspirin 325 mg PO DAILY tab Hydrochlorothiazide [Hydrodiuril] 25 mg PO DAILY #30 tab Lisinopril 40 mg PO DAILY #30 tab Rivaroxaban [Xarelto] 20 mg PO W/SUPPER #30 tab Continue Atorvastatin [Lipitor] 40 mg PO DAILY Ubidecarenone [Co Q-10] 100 mg PO DAILY Discontinued Lisinopril-Hctz 20-25 mg [Zestoretic 20-25] 1 tab PO HS Discharge Medication List Atorvastatin [Lipitor] 40 mg PO DAILY 06/06/19 [History] Ubidecarenone [Co Q-10] 100 mg PO DAILY 06/06/19 [History] Aspirin 325 mg PO DAILY tab 06/09/19 [Rx] Hydrochlorothiazide [Hydrodiuril] 25 mg PO DAILY #30 tab 06/09/19 [Rx] Lisinopril 40 mg PO DAILY #30 tab 06/09/19 [Rx] Rivaroxaban [Xarelto] 20 mg PO W/SUPPER #30 tab 06/09/19 [Rx] Follow up Appointment(s)/Referral(s): Vincenzo De La Fuente MD [Primary Care Provider] - 1-2 days Juan Carlos Main MD [STAFF PHYSICIAN] - 1 Week Patient Instructions/Handouts: A-fib (Atrial Fibrillation) (DC), Ischemic Stroke (DC) Activity/Diet/Wound Care/Special Instructions: Diet: heart healthy Activity: as tolerated Follow with Dr. De La Fuente to pursue testing for obstructive sleep apnea
== END 2019-06-09 12:59 | disposition home or self-care (01) | DRG 66 ==
LOC: EC 19:01 → 3SCARD 21:30 → OBSVTOIN 06-08 15:29
PROVIDERS: ADMIT Internal Medicine; ATTEND Internal Medicine
DX: I63.512 Cerebral infarction due to unspecified occlusion or stenosis of left middle cerebral artery (principal); I48.0 Paroxysmal atrial fibrillation; G83.21 Monoplegia of upper limb affecting right dominant side; R29.700 NIHSS score 0; I10 Essential (primary) hypertension; E78.5 Hyperlipidemia, unspecified; I16.0 Hypertensive urgency; R40.2362 Coma scale, best motor response, obeys commands, at arrival to emergency department; R40.2142 Coma scale, eyes open, spontaneous, at arrival to emergency department; R40.2252 Coma scale, best verbal response, oriented, at arrival to emergency department; R94.6 Abnormal results of thyroid function studies; Z79.899 Other long term (current) drug therapy; Z87.891 Personal history of nicotine dependence; Z86.73 Personal history of transient ischemic attack (TIA), and cerebral infarction without residual deficits; Z82.49 Family history of ischemic heart disease and other diseases of the circulatory system
CPT/HCPCS: 36415; 70450; 70551; 71046; 80053; 80061; 83036; 83735; 84439; 84443; 84484; 85025; 85610; 85730; 93005; 93306; 93880; 96360; 96361; 96372; 99285

== ENCOUNTER → 2020-02-20 | Outpatient (CLI) | payer MEDICARE ==
--- NOTE | 2020-02-20 14:16 | ECHOS ---
STRESS ECHOCARDIOGRAM DATE OF SERVICE: 02/20/2020 MARCO: Juani INDICATIONS: Hypertension, chest pain, paroxysmal atrial fibrillation. MEDICATIONS: BASELINE HEART RATE: 74 BASELINE BLOOD PRESSURE: 148/98 MAXIMUM HEART RATE: 135 MAXIMUM BLOOD PRESSURE: 182/106 85% MPHR: 126 100% MPHR: 142 METS: 4,4 MAXIMUM STAGE REACHED: 1 TOTAL EXERCISE TIME: 3:00 CLINICAL INFORMATION: Baseline EKG revealed normal sinus rhythm without significant ST-T changes. Patient walked for only 3 minutes on a standard Marv protocol. Achieved a maximal heart rate of 135 beats per minute which is more than 85% of predicted maximal. Isolated PVCs were noted. There was a lot of artifact making it difficult to interpret, but there is no clear-cut evidence to suggest any ischemia on this stress test. There was some QRS widening making it somewhat inconclusive as exercise progressed. By EKG criteria, this is an inconclusive stress test because of her rate-related QRS widening. Limited exercise capacity was noted. The patient did not have angina. Baseline echo images revealed normal wall motion and wall thickening of all segments. At peak exercise, there was good augmentation of left ventricular wall motion and wall thickening of all segments suggesting that there is no evidence of stress-induced ischemia on this study. IMPRESSION: 1. Limited exercise capacity. 2. Technically inconclusive stress test because of a rate-related QRS widening making it difficult to interpret, but patient did not have angina. Exercise capacity was limited. #. 3. At the above-mentioned limited exercise capacity, there was no evidence of ischemia, but patient did achieve more than 85% of predicted maximal heart rate. MMODL / IJN: [id number] /
== END | disposition home or self-care (01) ==
LOC: RADNMMAIN 09:45
PROVIDERS: ATTEND Internal Medicine
DX: I48.0 Paroxysmal atrial fibrillation (principal); E78.5 Hyperlipidemia, unspecified
CPT/HCPCS: C8930; Q9950; 93351

== ENCOUNTER 2022-02-02 10:07 | Emergency (ER) | payer MEDICARE ==
[2022-02-02 10:15] VITALS: BP 153/86; PULSE 68; RESP 20; TEMP 98.3
--- NOTE | 2022-02-02 11:26 | ED ---
General Adult HPI - General Chief complaint: Upper Respiratory Infection Stated complaint: Chest pain,MILANA Time Seen by Provider: 02/02/22 10:57 Source: patient Mode of arrival: wheelchair Limitations: no limitations - History of Present Illness Initial comments: This 81-year-old male sent to the emergency department with cough, nasal congestion, chills since Monday evening. Patient states he had something similar last year when he had the flu. Patient states he has not taken his temperature but over the last 2 days but has had chills and sweats. Patient states he has been able to get around home as usual this states he just feels more tired and has been sleeping a lot more. Patient states he has been having mucus production and states there was a little bit of red blood streaks in his mucus when he coughed one time this morning. He denies any clots or blood in his mucus since. Patient states he has been taking Robitussin which seems to help with the cough. Patient states when he pushes on his rib cage, coughs, or sneezes it does cause pain to his ribs. Patient denies any body aches. Patient denies any chest pain, shortness of breath, abdominal pain, nausea, vomiting, change in bowel or bladder, change in appetite, lightheadedness, dizziness, headache or change in vision, or rash. - Related Data Home Medications Medication Instructions Recorded Confirmed Atorvastatin [Lipitor] 40 mg PO DAILY 06/06/19 06/06/19 Ubidecarenone [Co Q-10] 100 mg PO DAILY 06/06/19 06/06/19 Previous Rx's Medication Instructions Recorded Aspirin 325 mg PO DAILY tab 06/09/19 Rivaroxaban [Xarelto] 20 mg PO W/SUPPER #30 tab 06/09/19 hydroCHLOROthiazide [Hydrodiuril] 25 mg PO DAILY #30 tab 06/09/19 lisinopriL 40 mg PO DAILY #30 tab 06/09/19 Benzonatate [Tessalon Perles] 100 mg PO TID PRN #15 capsule 02/02/22 Oseltamivir Phosphate 75 mg PO BID #10 capsule 02/02/22 Allergies Allergy/AdvReac Type Severity Reaction Status Date / Time No Known Allergies Allergy Verified 02/02/22 10:15 Review of Systems ROS Statement: Those systems with pertinent positive or pertinent negative responses have been documented in the HPI. ROS Other: All systems not noted in ROS Statement are negative. Past Medical History Past Medical History: Atrial Fibrillation, Hyperlipidemia, Hypertension History of Any Multi-Drug Resistant Organisms: None Reported Past Surgical History: Appendectomy Past Psychological History: No Psychological Hx Reported Smoking Status: Never smoker Past Alcohol Use History: None Reported Past Drug Use History: None Reported General Exam Limitations: no limitations General appearance: alert, in no apparent distress Head exam: Present: atraumatic, normocephalic, normal inspection Eye exam: Present: normal appearance, PERRL, EOMI. Absent: scleral icterus, conjunctival injection, periorbital swelling ENT exam: Present: normal exam, normal oropharynx, mucous membranes moist Neck exam: Present: normal inspection. Absent: tenderness, meningismus, lymphadenopathy Respiratory exam: Present: normal lung sounds bilaterally, chest wall tenderness (Mild chest wall tenderness to deep palpation over anterior bilateral ribs). Absent: respiratory distress, wheezes, rales, rhonchi, stridor, decreased breath sounds, prolonged expiratory Cardiovascular Exam: Present: regular rate, normal rhythm, normal heart sounds. Absent: systolic murmur, diastolic murmur, rubs, gallop, clicks GI/Abdominal exam: Present: soft, normal bowel sounds. Absent: distended, tenderness, guarding, rebound, rigid Extremities exam: Present: normal inspection, full ROM, normal capillary refill. Absent: tenderness, pedal edema, joint swelling, calf tenderness Back exam: Present: full ROM. Absent: CVA tenderness (R), CVA tenderness (L), paraspinal tenderness, vertebral tenderness Neurological exam: Present: alert, oriented X3, CN II-XII intact Psychiatric exam: Present: normal affect, normal mood Skin exam: Present: warm, dry, intact, normal color. Absent: rash Course Vital Signs 02/02/22 10:10 Temperature 98.3 F Pulse Rate 68 Respiratory 20 Rate Blood Pressure 153/86 O2 Sat by Pulse 98 Oximetry Medical Decision Making - Medical Decision Making This 81-year-old male presents emergency Department with cough, nasal congestion, chills 3 days. Patient tested positive for influenza A. Patient did refuse x-ray as he states he has gotten too many x-rays and that it is bad for his lungs. Tamiflu and Tessalon Perles were prescribed patient. Patient was instructed to take Tylenol for fever or body aches as directed. Patient instructed to follow up with his primary care provider next 1-2 days. Strict return precautions were discussed. Patient verbally agreed to plan. Patient sent home in stable condition. Case discussed in detail with my attending, . - Lab Data Lab Results 02/02/22 02/02/22 Range/Units 10:21 10:21 Coronavirus (PCR) Not Detected (Not Detectd) Influenza Type A RNA Detected H (Not Detectd) Influenza Type B (PCR) Not Detected (Not Detectd) Disposition Clinical Impression: Influenza A Disposition: HOME SELF-CARE Condition: Stable Instructions (If sedation given, give patient instructions): Influenza (ED) Additional Instructions: Please take Tamiflu as directed. Please use Tessalon Perles as directed for cough. Follow up with your primary care provider next 1-2 days. Return to the emergency department with any new, worsening, or concerning symptoms. Prescriptions: Oseltamivir Phosphate 75 mg PO BID #10 capsule Benzonatate [Tessalon Perles] 100 mg PO TID PRN #15 capsule PRN Reason: Cough Is patient prescribed a controlled substance at d/c from ED?: No Referrals: Stefan Mcpherson MD [Primary Care Provider] - 1-2 days Time of Disposition: 11:42
== END 2022-02-02 12:05 | disposition home or self-care (01) ==
LOC: EC 10:07
DX: J10.1 Influenza due to other identified influenza virus with other respiratory manifestations (principal); I10 Essential (primary) hypertension; E78.5 Hyperlipidemia, unspecified; Z79.899 Other long term (current) drug therapy; Z20.822 Contact with and (suspected) exposure to COVID-19
CPT/HCPCS: 87502; 87635; 99283

== ENCOUNTER → 2024-01-02 | Outpatient (CLI) | payer MEDICARE ==
--- NOTE | 2024-01-02 16:46 | US ---
EXAMINATION TYPE: US venous doppler duplex LE RT DATE OF EXAM: 01/02/2024 4:33 PM COMPARISON: NONE CLINICAL INDICATION: Male, 83 years old with history of M79.604 PAIN IN RIGHT LEG; Pain in right late ral calf after trauma to leg last week. No hx of DVT. On blood thinners SIDE PERFORMED: Right TECHNIQUE: The lower extremity deep venous system is examined utilizing real time linear array sonog aiden with graded compression, doppler sonography and color-flow sonography. VESSELS IMAGED: Common Femoral Vein Deep Femoral Vein Greater Saphenous Vein * Femoral Vein Popliteal Vein Small Saphenous Vein * Proximal Calf Veins (* superficial vessels) Right Leg: No evidence for DVT IMPRESSION: Grayscale, color doppler, spectral doppler imaging performed of the deep veins of the [facility] lower extremity. There is normal flow, compressibility, vascular waveforms.
== END | disposition home or self-care (01) ==
LOC: RADUSWWP 16:07
PROVIDERS: ATTEND Family Medicine
DX: M79.604 Pain in right leg (principal); Z79.01 Long term (current) use of anticoagulants